=== PATIENT | female | born 1935 | race African-American/Black ===

== ENCOUNTER 2016-11-22 21:48 | Emergency (ER) | payer OTHER ==
[~2016-11-22] VITALS: Ht 165.1 cm; Wt 98.9 kg
[2016-11-22 22:52] LABS: Basophils # (auto) 0 uL; Basophils % (auto) 0.3 % (0.0-2.0); DEFINITIVE VIEW TRANSMISSION; Eosinophils # (auto) 0.1 uL; Eosinophils % (auto) 2.1 % (0.0-7.0); Hemoglobin 12.7 g/dL (12.2-16.2); Lymphocytes # (auto) 1.6 uL; Lymphocytes % (auto) 33.6 % (10.0-50.0); Mean Corpuscular Hemoglobin 23.9 pg (28.0-32.0); Mean Corpuscular Hgb Conc. 32.6 g/dL (32.0-36.0); Mean Corpuscular Volume 73.4 fL (80.0-100.0); Mean Platelet Volume 6.9 fL (7.4-10.4); Monocytes # (auto) 0.5 uL; Monocytes % (auto) 9.9 % (0.0-12.0); Neutrophils # (auto) 2.5 uL; Neutrophils % (auto) 54.1 % (37.0-80.0); Platelet Count (auto) 222 10^3/uL (140-450); Red Cell Distribution Width 17.1 % (11.6-16.0); White Blood Cell 4.6 10^3/uL (4.4-10.8)
[2016-11-22 23:16] LABS: INR 0.98 (0.9-1.15); Partial Thromboplastin Time 25.6 sec (22.64-33.71); Prothrombin Time 10.7 sec (9.37-12.3)
[2016-11-22 23:23] LABS: Albumin 3.7 g/dL (3.4-5.0); Anion Gap 11 (5-15); Aspartate Aminotransferase 21 U/L (15-37); BUN/Creatinine Ratio 18.6; Blood Urea Nitrogen 13 mg/dL (7-18); Calcium 9.7 mg/dL (8.5-10.1); Carbon Dioxide 27 mmol/L (21-32); Chloride 105 mmol/L (98-107); GFR African American 104 mL/min; GFR Non-African American 86 mL/min; Glucose 97 mg/dL (74-106); Magnesium 2.3 mg/dL (1.6-2.6); Potassium 3.7 mmol/L (3.5-5.1); Sodium 143 mmol/L (136-145)
[2016-11-22 23:28] LABS: Alkaline Phosphatase 101 U/L (45-117); Bilirubin, Total 0.4 mg/dL (0.2-1.0); Total Protein 7.4 g/dL (6.4-8.2)
[2016-11-22 23:41] LABS: B-Type Natriuretic Peptide 39.56 pg/mL (0-100)
[2016-11-22 23:44] LABS: Temperature: 22.9 C (20.0-25.0)
[2016-11-23 03:35] LABS: Urine RBC None Seen /hpf (0 - 4)
[2016-11-23 03:53] LABS: Urine Bilirubin Negative (Negative); Urine Blood Negative /uL (Negative); Urine Color Yellow (Yellow); Urine Glucose Normal (Normal); Urine Ketone Negative (Negative); Urine Nitrite Negative (Negative); Urine Urobilinogen Normal (Negative); Urine pH 6.5 (5.0-8.0)
[2016-11-23] MEDS ORDERED: cloNIDine HCL 0.1 MG TAB PO ONE (08:30)
[2016-11-23 09:52] VITALS: BP 139/87
== END 2016-11-23 09:45 | disposition home or self-care (01) ==
LOC: ER 22:17
DX: I16.0 Hypertensive urgency (principal); Z90.710 Acquired absence of both cervix and uterus; Z88.2 Allergy status to sulfonamides; Z88.8 Allergy status to other drugs, medicaments and biological substances
CPT/HCPCS: 36415; 71010; 80053; 81001; 83735; 83880; 84484; 85025; 85610; 85730; 93005; 94761

== ENCOUNTER 2018-01-21 20:19 | Emergency (ER) | payer OTHER ==
[~2018-01-21] VITALS: Ht 165.1 cm; Wt 90.7 kg
[2018-01-21 21:16] LABS: Basophils # (auto) 0 uL; Eosinophils # (auto) 0.1 uL; Hemoglobin 13.6 g/dL (12.2-16.2); Lymphocytes # (auto) 1.5 uL; Mean Corpuscular Volume 78.7 fL (80.0-100.0); Monocytes # (auto) 0.5 uL; Neutrophils # (auto) 2.8 uL; Red Cell Distribution Width 15.3 % (11.8-14.3); White Blood Cell 4.9 10^3/uL (4.4-10.8)
[2018-01-21 21:18] LABS: Basophils % (auto) 0.6 % (0.0-2.0); Lymphocytes % (auto) 30.3 % (10.0-50.0); Mean Corpuscular Hemoglobin 26.1 pg (28.0-32.0); Mean Corpuscular Hgb Conc. 33.2 g/dL (32.0-36.0); Monocytes % (auto) 10.1 % (0.0-12.0); Nucleated Red Blood Cells % 0.1 %; Platelet Count (auto) 173 10^3/uL (140-450); Red Blood Cells 5.21 10^6/uL (4.0-5.20)
[2018-01-21 21:24] LABS: Alanine Aminotransferase 23 U/L (13-56); Albumin 3.6 g/dL (3.4-5.0); Anion Gap 7 (5-15); Aspartate Aminotransferase 17 U/L (15-37); BUN/Creatinine Ratio 24.7; Blood Urea Nitrogen 19 mg/dL (7-18); Calcium 8.9 mg/dL (8.5-10.1); Carbon Dioxide 26 mmol/L (21-32); Chloride 107 mmol/L (98-107); GFR African American 93 mL/min; GFR Non-African American 76 mL/min; Glucose 107 mg/dL (74-106); Potassium 3.7 mmol/L (3.5-5.1); Sodium 140 mmol/L (136-145)
[2018-01-21 21:28] LABS: Alkaline Phosphatase 101 U/L (45-117); Bilirubin, Total 0.4 mg/dL (0.2-1.0); Total Protein 7.2 g/dL (6.4-8.2)
[2018-01-22 04:20] VITALS: BP 147/84
== END 2018-01-22 05:39 | disposition home or self-care (01) ==
LOC: ER 20:19
DX: I10 Essential (primary) hypertension (principal); Z76.0 Encounter for issue of repeat prescription; Z88.8 Allergy status to other drugs, medicaments and biological substances; Z90.710 Acquired absence of both cervix and uterus
CPT/HCPCS: 36415; 71045; 80053; 83880; 84484; 85025; 93005

== ENCOUNTER 2020-03-26 23:49 | Emergency (ER) | payer OTHER ==
[~2020-03-26] VITALS: Ht 165.1 cm; Wt 76.7 kg
[~2020-03-26 23:49] MED LIST: CHOL20007 PO; LISI-275 PO
[2020-03-27 03:30] LABS: Basophils # (auto) 0 10 ^3/uL (0-0.2); Basophils % (auto) 0.4 % (0.0-2.0); Eosinophils # (auto) 0.1 10 ^3/uL (0-0.8); Eosinophils % (auto) 2.1 % (0.0-7.0); Hematocrit 38.7 % (36.0-46.0); Hemoglobin 12.7 g/dL (12.2-16.2); Lymphocytes # (auto) 0.9 10 ^3/uL (0.4-5.4); Lymphocytes % (auto) 26.4 % (10.0-50.0); Mean Corpuscular Hemoglobin 26.8 pg (28.0-32.0); Mean Corpuscular Hgb Conc. 32.8 g/dL (32.0-36.0); Mean Corpuscular Volume 81.6 fL (80.0-100.0); Monocytes # (auto) 0.5 10 ^3/uL (0-1.3); Monocytes % (auto) 14.3 % (0.0-12.0); Neutrophils % (auto) 56.8 % (37.0-80.0); Nucleated Red Blood Cells % 0.1 %; Platelet Count (auto) 149 10^3/uL (140-450); Red Blood Cells 4.74 10^6/uL (4.0-5.20); Red Cell Distribution Width 13.7 % (11.8-14.3); White Blood Cell 3.4 10^3/uL (4.4-10.8)
[2020-03-27 03:43] LABS: INR 1.21 (0.9-1.15); Partial Thromboplastin Time 26.6 sec (23.0-31.2)
[2020-03-27] MEDS ORDERED: ONDANSETRON HCL 4 MG/2 ML VIAL IV ONE ×2 (03:45→05:15)
[2020-03-27] MEDS ORDERED: SODIUM CHLORIDE 0.9% 1,000 ML IV ONE (03:45)
[2020-03-27 03:46] LABS: Alanine Aminotransferase 21 U/L (13-56); Albumin 3.4 g/dL (3.4-5.0); Anion Gap 13 (5-15); Aspartate Aminotransferase 23 U/L (15-37); BUN/Creatinine Ratio 24.1; Blood Urea Nitrogen 19 mg/dL (7-18); Calcium 9.7 mg/dL (8.5-10.1); Carbon Dioxide 27 mmol/L (21-32); Chloride 99 mmol/L (98-107); GFR African American 89 mL/min; GFR Non-African American 74 mL/min; Glucose 73 mg/dL (74-106); Sodium 139 mmol/L (136-145)
[2020-03-27 03:51] LABS: Potassium 2.6 mmol/L (3.5-5.1)
[2020-03-27 04:03] LABS: Alkaline Phosphatase 73 U/L (45-117); Bilirubin, Total 0.8 mg/dL (0.2-1.0); Total Protein 6.7 g/dL (6.4-8.2)
[2020-03-27] MEDS ORDERED: POTASSIUM CHL 20MEQ/100ML 100 ML IV ONE (05:15)
[2020-03-27] MEDS ORDERED: POTASSIUM EFFERVESENT TAB 25 MEQ PO ONE (05:15)
[2020-03-27 09:45] VITALS: BP 131/73
== END 2020-03-27 11:08 | disposition home or self-care (01) ==
LOC: ER 23:52
DX: E87.6 Hypokalemia (principal); I10 Essential (primary) hypertension; E86.0 Dehydration; E78.5 Hyperlipidemia, unspecified; K21.9 Gastro-esophageal reflux disease without esophagitis; E78.00 Pure hypercholesterolemia, unspecified; Z88.8 Allergy status to other drugs, medicaments and biological substances; Z79.899 Other long term (current) drug therapy; Z90.710 Acquired absence of both cervix and uterus
CPT/HCPCS: 36415; 71045; 74176; 80053; 83880; 84132; 84484; 85025; 85610; 85730; 93005; 96361; 96365; 96366; 99285; J3480

== ENCOUNTER 2024-02-12 17:05 | Emergency (ER) | payer OTHER ==
[~2024-02-12] VITALS: Ht 165.1 cm; Wt 81.0 kg
[2024-02-12 18:28] LABS: Urine Bacteria None Seen /hpf (None Seen)
[2024-02-12 18:32] LABS: Basophils # (auto) 0 10 ^3/uL (0-0.2); Basophils % (auto) 0.5 % (0.0-2.0); Eosinophils # (auto) 0.1 10 ^3/uL (0-0.8); Eosinophils % (auto) 2.6 % (0.0-7.0); Hematocrit 39.7 % (36.0-46.0); Mean Corpuscular Hemoglobin 26.7 pg (28.0-32.0); Mean Corpuscular Hgb Conc. 32.8 g/dL (32.0-36.0); Mean Corpuscular Volume 81.4 fL (80.0-100.0); Monocytes # (auto) 0.4 10 ^3/uL (0-1.3); Monocytes % (auto) 10.2 % (0.0-12.0); Neutrophils # (auto) 2.7 10 ^3/uL (1.6-8.6); Neutrophils % (auto) 62.7 % (37.0-80.0); Platelet Count (auto) 168 10^3/uL (140-450); Red Blood Cells 4.88 10^6/uL (4.0-5.20); Red Cell Distribution Width 13.7 % (11.8-14.3); White Blood Cell 4.3 10^3/uL (4.4-10.8)
[2024-02-12 18:54] LABS: Chloride 106 mmol/L (98-107); Potassium 3.9 mmol/L (3.5-5.1); Sodium 137 mmol/L (136-145)
[2024-02-12 18:55] LABS: Anion Gap 6 (5-15); Calcium 10.3 mg/dL (8.7-10.4); Carbon Dioxide 25 mmol/L (20-30)
[2024-02-12 19:00] LABS: Urine Blood Negative /uL (Negative); Urine Clarity Clear (Clear); Urine Color Yellow (Yellow); Urine Mucus FEW (None Seen); Urine Protein, UAD TRACE (Negative); Urine Specific Gravity 1.027 (1.001-1.035); Urine Urobilinogen 2 mg/dL (Negative); Urine WBC 1 /hpf (0 - 5); Urine pH 5.5 (5.0-9.0)
[2024-02-12 19:00] LABS: BUN/Creatinine Ratio 17.6 (10.0-20.0); Blood Urea Nitrogen 13 mg/dL (9-23); Glucose 92 mg/dL (74-106)
[2024-02-12] MEDS ORDERED: BACDST PO (19:21)
[2024-02-12] MEDS: cloNIDine HCL 0.1 MG TAB ONE (20:14)
[2024-02-12] MEDS: cloNIDine HCL 0.1 MG TAB PO ONE (20:15)
[2024-02-12 20:29] VITALS: BP 210/90; TEMP 98.6
[2024-02-12 20:30] VITALS: PULSE 85; RESP 19; O2SAT 96
== END 2024-02-12 20:35 | disposition home or self-care (01) ==
LOC: ER 17:05
DX: I16.0 Hypertensive urgency (principal); I11.0 Hypertensive heart disease with heart failure; I50.9 Heart failure, unspecified; L03.115 Cellulitis of right lower limb; R60.0 Localized edema; E78.5 Hyperlipidemia, unspecified; K21.9 Gastro-esophageal reflux disease without esophagitis; Z90.710 Acquired absence of both cervix and uterus; Z88.8 Allergy status to other drugs, medicaments and biological substances; Z79.899 Other long term (current) drug therapy
CPT/HCPCS: 36415; 71045; 80048; 81001; 83880; 85025; 93970